=== PATIENT | male | born 1960 | race Two or more races ===

== ENCOUNTER 2025-02-20 10:17 | Emergency (ER) | payer MEDICAID, SELFPAY ==
[2025-02-20 10:57] VITALS: BP 125/82; PULSE 79; RESP 19; TEMP 36.6; O2SAT 98; BMI 33.1
--- NOTE | 2025-02-20 11:14 | EKG_ITS ---
[facility] Test Date: 2025-02-20 Pat Name: MICHAEL SALAMANCA Department: Room: - Gender: Male Product Development Specialist: : [id number] Requested By: Amy Lyles Order Number: [id number] Reading MD: Amy Lyles Measurements Intervals Heath Rate: 76 P: 57 [place]: 161 QRS: -25 QRSD: 92 T: 56 QT: 376 QTc: 424 Interpretive Statements SINUS RHYTHM BORDERLINE LEFT AXIS DEVIATION [QRS AXIS < -20] INCOMPLETE RIGHT BUNDLE BRANCH BLOCK [90+ ms QRS DURATION, TERMINAL R IN V1/V2, 40+ ms S IN I/aVL/V4/V5/V6] Compared to ECG 02/25/2018 12:07:49 Myocardial infarct finding no longer present /store/S0/[id number].pdf
--- NOTE | 2025-02-20 11:14 | EDRME_ITS ---
Rapid Medical Screening Exam RME Arrival date/time: 02/20/25 10:17 This is a 64-year-old male that comes in with complaints of dizziness feeling very lightheaded. Patient states he thought he was going to pass out. Patient also complains of shortness of breath. Patient is a smoker smokes approximately half a pack to 1 pack a day. Patient was seen today at the [facility]. Patient being currently worked up for possible pneumonia. Patient does have a history of high blood pressure. Today patient was given a shot of Rocephin in the office. Patient reports feels very dizzy at the time of assessment. I have greeted and performed a focused initial assessment of this patient. Initial appropriate labs ordered at this time. A comprehensive ED assessment and evaluation of the patient and analysis of all test and completion of medical decision making process will be conducted by additional ED provider. Chief Complaint: General Adult/Misc Complain Time Seen by Provider: 02/20/25 10:58 Vital signs: Vital Signs Temperature 97.9 F 02/20/25 10:57 Pulse Rate 79 02/20/25 10:57 Respiratory Rate 19 02/20/25 10:57 Blood Pressure 125/82 02/20/25 10:57 Pulse Oximetry (%) 98 02/20/25 10:57 Oxygen Delivery Method Room Air 02/20/25 10:57
--- NOTE | 2025-02-20 11:14 | XR_ITS ---
Exam: Chest PA, lateral 2 views Technique: Chest upright PA lateral 2 views Date and time of exam: 02/20/2025, 11:24 AM INDICATION: Shortness of breath COMPARISON: 02/25/2018 Findings: Normal heart size. No mediastinal adenopathy. No acute fracture Peribronchial thickening. No focal mass or consolidation Impression: Peribronchial inflammation. No focal mass or infiltrate
[2025-02-20 12:02] LABS: Basophils % (Auto) 0 % (0-2.5); Eosinophils # (Auto) 0.2 Thou/mm3 (0.0-0.5); Eosinophils % (Auto) 2 % (0-10); Hematocrit 47.5 % (41.0-53.0); Hemoglobin 16.1 g/dL (13.5-16.0); Immature Granulocytes % (Auto) 0 % (0-0); Immature Granulocytes Auto 0.03 Thou/mm3 (0.00-0.00); Lymphocytes # (Auto) 1.6 Thou/mm3 (1.0-4.8); Lymphocytes % (Auto) 21 % (10-50); Mean Corpuscular HGB Conc 33.9 g/dl (31.0-37.0); Mean Corpuscular Hemoglobin 31.1 pg (25.0-35.0); Mean Corpuscular Volume 92 fL (80-100); Monocytes # (Auto) 0.6 Thou/mm3 (0.0-0.8); Monocytes % (Auto) 7 % (0-12); Neutrophils # (Auto) 5.3 Thou/mm3 (1.8-7.7); Neutrophils % (Auto) 69 % (37-80); Nucleated Red Blood Cell % 0 /100 WBC (0); Platelet Count 247 Thou/mm3 (140-440); RDW Standard Deviation 47.7 fL (35.1-43.9); Red Blood Count 5.17 Miln/mm3 (4.50-5.90); White Blood Count 7.7 Thou/mm3 (3.8-10.6)
[2025-02-20 12:19] LABS: B-Type Natriuretic Peptide < 20 pg/mL (0-100)
[2025-02-20 12:20] LABS: Alanine Aminotransferase 46 U/L (10-49); Albumin, Serum 4.6 gm/dL (3.4-4.8); Albumin/Globulin Ratio 1.7 (1.2-2.2); Alkaline Phosphatase 68 U/L (46-116); Anion Gap 5 (7-16); Aspartate Amino Transferase 23 U/L (0-34); BUN/Creatinine Ratio 14 Ratio (12-20); Blood Urea Nitrogen 13 mg/dL (9-23); Calcium 9.4 mg/dL (8.3-10.6); Calcium (Corrected) 9.4 mg/dL (8.5-10.1); Carbon Dioxide 25.7 mMol/L (20.0-31.0); Chloride 105 mMol/L (98-107); Creatinine (Component) 0.9 mg/dL (0.6-1.3); Estimated Creatinine Clearance 84.9 mL/min (>60); Globulin 2.7 gm/dL (2.3-3.5); Glucose 112 mg/dL (74-106); Osmolality,Calculated 273 (275-295); Potassium 4.5 mMol/L (3.4-5.1); Sodium 136 mMol/L (136-145); Total Protein 7.3 gm/dL (5.7-8.2); Troponin I < 0.002 ng/mL (0.0-0.045); eGFR > 60 See Note
--- NOTE | 2025-02-20 15:10 | EDNOTE_ITS ---
<Statement entered by Lynda Phelan MD - 02/21/25 15:22> As co-signing physician, I was present and available for consult prn. I concur with the plan and care as documented by the midlevel provider. ED General RME/HPI General Chief complaint: General Adult/Misc Complain Stated complaint: CXR POSSIBLE PNA, LIGHT HEADED Time Seen by Provider: 02/20/25 10:58 Arrival date/time: 02/20/25 10:17 RME / HPI RME / HPI narrative: 65-year-old male patient with significant history of asthma, hypertension, came in for evaluation regarding sudden onset of dizziness. Onset of symptoms earlier this morning, patient woke up with sudden onset of dizziness, with lightheadedness, and feeling like passing out. Patient also complained of shortness of breath. Patient is a chronic smoker. Was seen in the clinic and was given ceftriaxone IM for possible pneumonia. Patient is ambulatory. Denies any head trauma or fall denies any fever denies any other complaints patient is denying any started with speech, or weakness to both upper or lower extremities. Related Data Home Medications ?Medication ?Instructions ?Recorded ?Confirmed lisinopril 20 mg tablet 20 mg PO QDAY 12/17/1704/13 albuterol sulfate 90 mcg/actuation 2 puff inhalation Q 4H PRN 04/13/21 04/13/21 aerosol inhaler (Ventolin HFA) budesonide-formoterol HFA 160 2 puff inhalation BID 04/13/21 mcg-4.5 mcg/actuation aerosol inhaler (Symbicort) Previous Rx's ?Medication ?Instructions ?Recorded meclizine 25 mg tablet 25 mg PO BID PRN dizziness # 20 tabs 02/20/25 Allergies Allergy/AdvReac Type Severity Reaction Status Date / Time No Known Allergies Allergy Verified 02/20/25 10:21 Review of Systems Review of Systems Narrative Review of Systems: Review of system reviewed and within normal limits except mentioned in HPI ED Exam Narrative Physical exam: VITAL SIGNS: Reviewed. GENERAL APPEARANCE: Alert and interactive, follows commands, no acute distress, HEAD AND FACE: Non-traumatic. ENT: PERRL, pink conjunctivitis, eyelid no trauma, Mucous membrane moist. NECK: Supple, nontender, no nuchal rigidity. CHEST: No tenderness, no crepitus, no paradoxical movement, no retractions. LUNGS: Clear, well ventilated, symmetric, no rales, no wheezing, no ronchi, no stridor, good breath sounds bilaterally. HEART: Regular rate, regular rhythm, no murmur, no gallops. ABDOMEN: Soft, positive bowel sounds, nondistended, no guarding, nontender, no rebound, no masses, RECTAL: Deferred. GENITAL: Deferred. NEUROLOGICAL: Gross motor function intact sensory function intact, Appropriate for age. MUSCULOSKELETAL: low back nontender, full range of motion. EXTREMITIES: Nontender, full range of motion. SKIN: Color pink, dry, no rash, no lacerations, no abrasions, no contusions. LYMPHATICS: Deferred. Course Quality Measures none Orders Category Date Time Status EKG (ED ONLY) *Do not use* NOW Care 02/20/25 11:14 Completed EKG (ED Only) Stat Exams 02/20/25 11:14 Draft XR chest 2V Stat Exams 02/20/25 11:14 Completed BNP [B-Type Natriuretic Peptide] Stat Lab 02/20/25 11:55 Completed CBC Stat Lab 02/20/25 11:55 Completed Comprehensive Metabolic Panel Stat Lab 02/20/25 11:55 Completed Troponin I Stat Lab 02/20/25 11:55 Completed Meclizine HCl [Antivert] Med 02/20/25 15:09 Discontinued 50 mg PO X1 ONE Vital Signs Vital signs: Vital Signs Temperature 97.9 F 02/20/25 10:57 Pulse Rate 79 02/20/25 10:57 Respiratory Rate 19 02/20/25 10:57 Blood Pressure 125/82 02/20/25 10:57 Pulse Oximetry (%) 98 02/20/25 10:57 Oxygen Delivery Method Room Air 02/20/25 10:57 [facility] Patient data External records reviewed:: [facility] previous records Clinical information provided by:: patient Social determinants that could affect healthcare access:: none Patient has the following chronic illnesses:: Hypertension asthma How is presenting disease/condition affected by chronic disease/condition?: e xacerbated by Evaluation data The following diagnostics were reviewed and interpreted by me:: lab results, radiology exam(s) and EKG tracing(s) Lab and/or radiology exams considered but not ordered:: None Interpretation Summary: See results [facility] Medications Medications considered but not ordered:: None Medication administrations:: Medication Administration History Discontinued Medications Meclizine HCl (Meclizine Hcl 25 Mg Tablet) 50 mg PO X1 ONE Stop: 02/20/25 15:10 Meclizine Consultations Consultation(s) initiated? (list below): No Diagnosis Differential Diagnosis ED Complaint MDM: Dizziness, vertigo, cough Most likely diagnosis given after review of the tests above:: Dizziness Admission Indicated Admission indicated?: not indicated Explain why admission is indicated or not indicated:: Stable Admission Request Was there a request for admission?: No Disposition Plan Disposition Plan: Discharge Discharge Attestation Discharge Attestation: The patient and all family members were given an opportunity to ask questions and understood the discharge instructions. Discharge instructions specifically effects, indications for sooner follow up or return to the emergency department, and the expected course of current diagnosis. Patient condition: Stable Medical Decision Making MDM Narrative MDM Narrative: 65-year-old male patient with significant history of asthma, hypertension, came in for evaluation regarding sudden onset of dizziness. Onset of symptoms earlier this morning, patient woke up with sudden onset of dizziness, with lightheadedness, and feeling like passing out. Patient also complained of shortness of breath. Patient is a chronic smoker. Was seen in the clinic and was given ceftriaxone IM for possible pneumonia. Patient is ambulatory. Denies any head trauma or fall denies any fever denies any other complaints patient is denying any started with speech, or weakness to both upper or lower extremities. Patient's workup today all came back unremarkable including troponin that is normal also. EKG showed sinus rhythm, ventricular rate of 76 bpm, no ST segment elevation or depression noted. Chest x-ray showed no infiltrates no pneumothorax no pneumothorax except for possible [place] bronchial inflammation. Patient was given meclizine with significant improvement of symptoms. Patient was noted to be ambulatory with no assist. Patient appears nontoxic and hemodynamically stable. Patient discharged home and instructed to follow-up with primary care provider in 24 to 48 hours. Instructed to return to the emergency department immediately if worsening of symptoms Differential Diagnosis Differential Diagnosis: Dizziness, vertigo, cough Lab Data 02/20/25 11:55 02/20/25 11:55 Labs: Lab Results 02/20/25 Range/Units 11:55 WBC 7.7 (3.8-10.6) Thou/mm3 RBC 5.17 (4.50-5.90) Miln/mm3 Hgb 16.1 H (13.5-16.0) g/dL Hct 47.5 (41.0-53.0) % MCV 92 (80-100) fL MCH 31.1 (25.0-35.0) pg MCHC 33.9 (31.0-37.0) g/dl RDW Std Deviation 47.7 H (35.1-43.9) fL Plt Count 247 (140-440) Thou/mm3 Neut % (Auto) 69 (37-80) % Lymph % (Auto) 21 (10-50) % [place] % (Auto) 7 (0-12) % Eos % (Auto) 2 (0-10) % Baso % (Auto) 0 (0-2.5) % Neut # (Auto) 5.3 (1.8-7.7) Thou/mm3 Lymph # (Auto) 1.6 (1.0-4.8) Thou/mm3 [place] # (Auto) 0.6 (0.0-0.8) Thou/mm3 Eos # (Auto) 0.2 (0.0-0.5) Thou/mm3 Baso # (Auto) 0.0 (0.0-0.2) Thou/mm3 Immature Gran # (Auto) 0.03 H (0.00-0.00) Thou/mm3 Absolute Nucleated RBC 0.00 (0.00-0.00) Thou/mm3 Immature Gran % 0 (0-0) % Nucleated RBC % 0 (0) /100 WBC Sodium 136 (136-145) mMol/L Potassium 4.5 (3.4-5.1) mMol/L Chloride 105 (98-107) mMol/L Carbon Dioxide 25.7 (20.0-31.0) mMol/L Anion Gap 5 L (7-16) BUN 13 (9-23) mg/dL Creatinine 0.9 (0.6-1.3) mg/dL Estim Creat Clear Calc 84.9 (>60) mL/min eGFR > 60 (60 - ) See Note BUN/Creatinine Ratio 14 (12-20) Ratio Glucose 112 H (74-106) mg/dL Calculated Osmolality 273 L (275-295) Calcium 9.4 (8.3-10.6) mg/dL Corrected Calcium 9.4 (8.5-10.1) mg/dL Total Bilirubin 1.0 (0.3-1.2) mg/dL AST 23 (0-34) U/L ALT 46 (10-49) U/L Alkaline Phosphatase 68 (46-116) U/L Troponin I < 0.002 (0.0-0.045) ng/mL B-Natriuretic Peptide < 20 (0-100) pg/mL Total Protein 7.3 (5.7-8.2) gm/dL Albumin 4.6 (3.4-4.8) gm/dL Globulin 2.7 (2.3-3.5) gm/dL Albumin/Globulin Ratio 1.7 (1.2-2.2) Discharge Plan Plan Patient Disposition: HOME (Self Care) Disposition Comment: Stable Prescriptions/Referrals Prescriptions/Med Rec: New meclizine 25 mg tablet 25 mg PO BID PRN (Reason: dizziness) Qty: 20 0RF No Action budesonide-formoterol [Symbicort] 160-4.5 mcg/actuation HFA aerosol inhaler 2 puff inhalation BID albuterol sulfate [Ventolin HFA] 90 mcg/actuation HFA aerosol inhaler 2 puff inhalation Q4H PRN lisinopril 20 mg Tablet 20 mg PO QDAY Referrals: Lisbeth Sandoval DENTIST ATTENDANT [Primary Care Provider] - In 1 week Problem List Clinical Impression: Dizziness Patient/Caregiver Discharge Instructions Discharge Activity: activity as tolerated Education Materials: Dizziness Fainting Poss Causes Additional Instructions: Thank you for the opportunity for serving you today. You are stable for discharged . You are advised to: Follow-up with your PCP in 1 to 2 days Return to ED for worsening of symptoms Increase oral fluids Take medication as prescribed Print Language: Khmer Stand Alone Forms: Bailee Award Info., Patient Portal Info Letter PA/RCIHI Supervising Physician TRAVIS/RICHI Supervising Physician: MD Zhane
[2025-02-20] MEDS: MECLIZINE HCL 25 MG TABLET 50 MG PO (16:04)
== END 2025-02-20 16:20 | disposition home or self-care (01) ==
PROVIDERS: Nurse Practitioner Family; Emergency Provider Emergency Medicine; PCP Nurse Practitioner Family
DX: R42 Dizziness and giddiness (principal); I10 Essential (primary) hypertension; J45.909 Unspecified asthma, uncomplicated; F17.200 Nicotine dependence, unspecified, uncomplicated
CPT/HCPCS: 36415; 71046; 80053; 83880; 84484; 85025; 93005; 99283; A9270

== ENCOUNTER → 2025-07-22 | Outpatient (CLI) | payer MEDICAID, SELFPAY ==
--- NOTE | 2025-07-22 | XR_ITS ---
Examination: PA lateral chest 2 views TECHNIQUE: Upright PA lateral chest 2 views Date and time: July 22, 2025 1119 hours, comparison February 20, 2025 INDICATIONS: Coughing shortness of breath beginning one week ago. FINDINGS: Normal heart size. Moderate hyperexpansion. No pneumonia or pulmonary edema Mild to moderate diffuse thoracic degenerative disc disease IMPRESSION: COPD Moderate hyperexpansion No pneumonia or pulmonary edema
== END | disposition home or self-care (01) ==
LOC: CDIM 10:39
PROVIDERS: PCP Nurse Practitioner Family; Referring Provider Nurse Practitioner Family; Visit Provider Nurse Practitioner Family
DX: J44.1 Chronic obstructive pulmonary disease with (acute) exacerbation (principal); R91.8 Other nonspecific abnormal finding of lung field
CPT/HCPCS: 71046

== ENCOUNTER 2025-07-27 06:27 | Emergency (ER) | payer MEDICAID, SELFPAY ==
[2025-07-27 06:28] VITALS: BMI 31.7
[2025-07-27 06:49] VITALS: BP 153/94; PULSE 84; RESP 22; TEMP 36.6; O2SAT 93
--- NOTE | 2025-07-27 06:54 | XR_ITS ---
Examination: PA lateral chest 2 views Technique: Upright PA lateral chest 2 views Date and time: July 27, 2025 0726 hrs. Indications: Coughing fever beginning 3 days ago. Findings: Normal heart size. Lungs are clear. The osseous structures are intact Impression: No active disease
[2025-07-27] MEDS: DEXAMETHASONE SOD PHOS INJ 10 MG/ML VIAL PO (07:35)
--- NOTE | 2025-07-27 07:38 | EDNOTE_ITS ---
<Statement entered by Lynda Phelan MD - 07/27/25 11:56> As co-signing physician, I was present and available for consult prn. I concur with the plan and care as documented by the midlevel provider. ED SOB =RME/HPI General Chief Complaint: Flu Like Symptoms Stated Complaint: SOB Time Seen by Provider: 07/27/25 07:06 Source: patient Arrival date/time: 07/27/25 06:27 64-year-old male with a history of asthma, hypertension presents to the emergency room with a chief complaint of difficulty breathing x 1 day Mode of arrival: ambulatory Limitations: no limitations Related Data Home Medications ?Medication ?Instructions ?Recorded ?Confirmed lisinopril 20 mg tablet 20 mg PO QDAY 12/17/1704/13 albuterol sulfate 90 mcg/actuation 2 puff inhalation Q 4H PRN 04/13/21 04/13/21 aerosol inhaler (Ventolin HFA) budesonide-formoterol HFA 160 2 puff inhalation BID 04/13/21 mcg-4.5 mcg/actuation aerosol inhaler (Symbicort) Previous Rx's ?Medication ?Instructions ?Recorded meclizine 25 mg tablet 25 mg PO BID PRN dizziness # 20 tabs 02/20/25 Allergies Allergy/AdvReac Type Severity Reaction Status Date / Time No Known Allergies Allergy Verified 07/27/25 06:31 Review of Systems Review of Systems Systems Reviewed: All systems reviewed, normal except as documented Constitutional Constitutional: Reports system reviewed and no additional complaints, except as documented, Denies fatigue, Denies fever(s), Denies headache(s) and Denies weakness Eyes Eyes: Reports system reviewed and no additional complaints, except as documented, Denies blurry vision and Denies change in vision ENT Ears, Nose, Mouth, and Throat: Reports system reviewed and no additional complaints, except as documented, Denies otalgia, Denies headache(s), Denies nasal congestion, Denies throat swelling and Denies vertigo Cardiovascular Cardiovascular: Reports system reviewed and no additional complaints, except as documented, Denies chest pain, Denies dyspnea and Denies dyspnea on exertion Respiratory Respiratory: Reports system reviewed and no additional complaints, except as documented, Denies chest congestion, Denies cough, Denies dyspnea, Denies dyspnea on exertion and Denies wheezing Gastrointestinal Gastrointestinal: Reports system reviewed and no additional complaints, except as documented, Denies abdominal pain, Denies cramping, Denies nausea and Denies vomiting Genitourinary Genitourinary: Reports system reviewed and no additional complaints, except as documented, Denies dysuria and Denies hematuria Musculoskeletal Musculoskeletal: Reports system reviewed and no additional complaints, except as documented and Denies back pain Integumentary/Breasts Skin/Breast: Reports system reviewed and no additional complaints, except as documented and Denies wounds Neurologic Neurologic: Reports system reviewed and no additional complaints, except as documented, Denies confusion, Denies headache(s), Denies lack of coordination, Denies vertigo and Denies weakness Psychiatric Psychiatric: Reports system reviewed and no additional complaints, except as documented, Denies anxiety, Denies confusion, Denies depression, Denies paranoia, Denies suicidal ideation and Denies tactile hallucinations Endocrine Endocrine: Reports system reviewed and no additional complaints, except as documented and Denies fatigue Hematologic/Lymphatic Hematologic/Lymphatic: Reports system reviewed and no additional complaints, except as documented and Denies lymphadenopathy Allergic/Immunologic Allergic/Immunologic: Reports system reviewed and no additional complaints, except as documented, Denies throat swelling, Denies urticaria and Denies wheezing ED Exam General Limitations: Present no limitations Course Quality Measures none Orders Category Date Time Status Bedside COVID-19 Antigen Test NOW Care 07/27/25 06:54 Active Bedside Influenza A&B Antigen Test NOW Care 07/27/25 06:54 Active XR chest 2V Stat Exams 07/27/25 06:54 Completed Albuterol/Ipratr Rt Rochelle [Duoneb Rt Rochelle] Med 07/27/25 06:54 Discontinued 6 ml INH X1 ONE Dexamethasone Inj [Decadron Inj] Med 07/27/25 06:54 Discontinued 10 mg PO X1 ONE Vital Signs Vital signs: Vital Signs Temperature 98 F 07/27/25 06:49 Pulse Rate 84 07/27/25 06:49 Respiratory Rate 22 H 07/27/25 06:49 Blood Pressure 153/94 H 07/27/25 06:49 Pulse Oximetry (%) 93 L 07/27/25 06:49 Oxygen Delivery Method Room Air 07/27/25 06:49 Shortness of Breath / Dyspnea MDM Narrative MDM Narrative:: 64-year-old male with a history of asthma, hypertension presents to the emergency room with a chief complaint of difficulty breathing x 1 day Patient is hemodynamically stable and in no apparent distress Physical examination shows bilateral upper and lower lobe wheezing. Patient's O2 saturation is 93%. Patient has a history of asthma. A breathing treatment and steroids were given to the patient and the patient was reevaluated in 1 hour with significant improvement to his symptoms. Patient's O2 saturation is 100% on room air. Patient was able to walk to the restroom and return with no hypoxia and O2 saturation stayed at 97%. Patient's lungs are reevaluated and the wheezing significantly decreased. Patient states he feels a lot better. Chest x-ray was negative for any pneumonia Patient was discharged and educated to follow-up with primary care provider in the next 24 to 48 hours and return to the emergency room for any evidence of worsening signs or symptoms Patient data External records reviewed:: [facility] previous records Clinical information provided by:: patient Social determinants that could affect healthcare access:: none Patient has the following chronic illnesses:: Asthma How is presenting disease/condition affected by chronic disease/condition?: exacerbated by Evaluation data The following diagnostics were reviewed and interpreted by me:: lab results and radiology exam(s) Lab and/or radiology exams considered but not ordered:: Labs and radiology exams considered and ordered Interpretation Summary: Chest [id number]: Normal heart size. Lungs are clear. The osseous structures are intact Impression: No active disease Medications / Prescriptions Medications or Prescriptions considered but not ordered:: Medication given Medication administrations:: Medication Administration History Discontinued Medications Albuterol/Ipratropium (Albuterol/Ipratropium (Duoneb) Rt Rochelle 3 Ml Nebu) 6 ml INH X1 ONE Stop: 07/27/25 06:55 Last Admin: 07/27/25 07:44 Dose: 6 ml Documented By: EV Dexamethasone Sodium Phosphate (Dexamethasone Sod Phos Inj 10 Mg/Ml Vial) 10 mg PO X1 ONE Stop: 07/27/25 06:55 Last Admin: 07/27/25 07:35 Dose: 10 mg Documented By: ED Medication given Consultations Consultation(s) initiated? (list below): No Diagnosis Shortness of Breath Differential Diagnosis: acute exacerbation of chronic obstructive airways disease, community acquired pneumonia and asthma with exacerbation Most likely diagnosis given after review of the tests above:: Asthma with exacerbation Admission Indicated Admission indicated?: not indicated Admission Request Was there a request for admission?: No Disposition Plan Disposition Plan: Discharge Discharge Attestation Discharge Attestation: The patient and all family members were given an opportunity to ask questions and understood the discharge instructions. Discharge instructions specifically effects, indications for sooner follow up or return to the emergency department, and the expected course of current diagnosis. Patient condition: Stable Discharge Plan Plan Patient Disposition: HOME (Self Care) Discharge Disposition comment: Stable Prescriptions/Referrals Prescriptions/Med Rec: No Action budesonide-formoterol [Symbicort] 160-4.5 mcg/actuation HFA aerosol inhaler 2 puff inhalation BID albuterol sulfate [Ventolin HFA] 90 mcg/actuation HFA aerosol inhaler 2 puff inhalation Q4H PRN lisinopril 20 mg Tablet 20 mg PO QDAY meclizine 25 mg tablet 25 mg PO BID PRN (Reason: dizziness) Qty: 20 0RF Referrals: No Primary/Family,Physician [Primary Care Provider] - In 1 week Problem List Clinical Impression: Asthma with exacerbation Patient/Caregiver Discharge Instructions Education Materials: Asthma Additional Instructions: Please follow-up with your primary care provider in the next 24 to 48 hours Your x-ray was negative for any pneumonia. Please stop smoking as this is worsening your difficulty breathing For any evidence of worsening signs or symptoms return to the emergency room immediately Print Language: Nepali Stand Alone Forms: Bailee Award Info., Patient Portal Info Letter PA/RICHI Supervising Physician PA/RICHI Supervising Physician: Dr. Cunningham
[2025-07-27] MEDS: ALBUTEROL/IPRATROPIUM (Duoneb) RT SOL 3 ML NEBU 6 ML INH (07:44)
[2025-07-27 07:48] VITALS: PULSE 81; RESP 20; O2SAT 100
== END 2025-07-27 09:14 | disposition home or self-care (01) ==
PROVIDERS: Emergency Provider Nurse Practitioner Family
DX: J45.901 Unspecified asthma with (acute) exacerbation (principal); R50.9 Fever, unspecified; Z79.51 Long term (current) use of inhaled steroids
CPT/HCPCS: 71046; 94640; 99283; A9270; J1100

== ENCOUNTER 2025-08-07 04:09 | Inpatient (IN) | payer MEDICAID, SELFPAY ==
[2025-08-07] VITALS (16 sets, daily range): BP systolic 106–157; BP diastolic 65–91; PULSE 75–104; RESP 18–24; TEMP 36–37; O2SAT 92–99; BMI 30.9; BMI 31.6
--- NOTE | 2025-08-07 04:29 | PD.EDSOB ---
ED SOB =RME/HPI General Chief Complaint: Shortness of Breath/Dyspnea Stated Complaint: ASTHMA Time Seen by Provider: 08/07/25 05:04 Arrival date/time: 08/07/25 04:09 RME / HPI RME / HPI Narrative: Dr. Lamar?s Main ED Evaluation: 64yo male with known asthma, smoking presenting with dyspnea for the last several days. no fever, but does report scant productive cough. Notes progressive dyspnea despite use of dual inhalers. No vomiting, diarrhea, fever, or chills. Related Data Home Medications ?Medication ?Instructions ?Recorded ?Confirmed lisinopril 20 mg tablet 20 mg PO QDAY 12/17/17 04/13/21 albuterol sulfate 90 mcg/actuation 2 puff inhalation Q4H PRN 04/13/21 04/13/21 aerosol inhaler (Ventolin HFA) budesonide-formoterol HFA 160 2 puff inhalation BID 04/13/21 04/13/21 mcg-4.5 mcg/actuation aerosol inhaler (Symbicort) Previous Rx's ?Medication ?Instructions ?Recorded meclizine 25 mg tablet 25 mg PO BID PRN dizziness #20 tabs 02/20/25 Allergies Allergy/AdvReac Type Severity Reaction Status Date / Time No Known Allergies Allergy Verified 08/07/25 04:12 Review of Systems Review of Systems Systems Reviewed: All systems reviewed, normal except as documented Past Medical History Past Medical History CARDIAC: Positive Hypercholesterolemia and Hypertension; Negative Congestive Heart Failure RESPIRATORY: Negative Chronic Obstructive Pulmonary Disease (COPD) GENITOURINARY: Negative Renal Disease ENDOCRINE: Negative Diabetes Mellitus Type 1 or Diabetes Mellitus Type 2 PSYCHO/SOCIAL: Positive Anxiety Social History SMOKING STATUS: Current every day smoker ED Exam Narrative Physical exam: GENERAL APPEARANCE: alert and oriented x 4, tripodding, slight use of accessory muscles, in moderate distress HEENT: Normocephalic, atraumatic; pupils equal, round, reactive to light; EOMI; mucous membranes pink, moist; oropharynx clear NECK: Supple. no stridor CHEST: slight retractions LUNGS: slight accessory muscle use, diminished breath sounds, scattered faint wheezes bilaterally HEART: Tachycardic, regular rhythm; normal S1, S2; no murmurs ABDOMEN: non distended; normal BS; soft, no tenderness, no guarding, no rebound; no masses, no organomegaly, no hernia BACK: no CVA tenderness EXTREMITIES: atraumatic; no edema NEUROLOGIC: awake; alert and oriented x4; cranial nerves II-XII grossly intact; no focal sensory or motor deficits PSYCHIATRIC: appropriate mood and affect SKIN: warm, dry, normal color; no rashes Course Course Course Narrative: CXR is ordered for determining the etiology of shortness of breath. Quality Measures none Orders Category Date Time Status XR chest 1V portable Stat Exams 08/07/25 04:30 Completed CBC [CBC] Stat Lab 08/07/25 04:55 Completed CMP [Comprehensive Metabolic Panel] Stat Lab 08/07/25 04:55 Completed Urinalysis, C/S if Indicated Stat Lab 08/07/25 05:43 Completed ALBUTEROL RT 0.5ml [Proventil Rt 0.5ml] Med 08/07/25 04:49 Discontinued 10 mg .ROUTE .STK-MED ONE ALBUTEROL RT 0.5ml [Proventil Rt 0.5ml] Med 08/07/25 04:30 Discontinued 10 mg INH X1 ONE Dexamethasone Inj [Decadron Inj] 10 mg Med 08/07/25 04:30 Discontinued Sodium Chloride 0.9% [Ns] 50 ml IV X1 Magnesium Sulfate 2 GM Ivpb [Magnesium Sulfate Ivpb] Med 08/07/25 04:35 Active 2 gm in 50 ml IV X1 Sodium Chloride 0.9% 500 ml [Ns] 500 ml Med 08/07/25 04:35 Discontinued IV 500 mls/hr Sodium Chloride Rt Rochelle 0.9% [NS Rt Rochelle 0.9%] Med 08/07/25 04:30 Active 3 ml INH PRN PRN Vital Signs Vital signs: Vital Signs Temperature 97.7 F 08/07/25 04:09 Pulse Rate 103 H 08/07/25 04:09 Respiratory Rate 24 H 08/07/25 04:09 Blood Pressure 157/91 H 08/07/25 04:09 Pulse Oximetry (%) 93 L 08/07/25 04:09 Oxygen Delivery Method Nasal Cannula 08/07/25 04:09 Oxygen Flow Rate 3 08/07/25 04:09 Shortness of Breath / Dyspnea MDM Narrative MDM Narrative:: Scribe Attestation: 08/07/25 - Karlene Pack am scribing for and in the presence of Dr. Lamar. 64yo male with known asthma, smoking presenting with dyspnea for the last several days. no fever, but does report scant productive cough. Notes progressive dyspnea despite use of dual inhalers. Please see PE findings. Lab markers demonstrated hemoconcentration with Hgb 17, no left shift or bandemia. CXR without infiltrate. Patient immediately triaged to monitor bed and was aggressively treated with nebulizer therapy, IV steroids, and Magnesium. Please see AM physician's note for final disposition. Patient data External records reviewed:: [facility] previous records (Per chart review, patient was seen here on 07/27/25 for asthma exacerbation.) Clinical information provided by:: patient Social determinants that could affect healthcare access:: none Patient has the following chronic illnesses:: asthma, HTN How is presenting disease/condition affected by chronic disease/condition?: exacerbated by Evaluation data The following diagnostics were reviewed and interpreted by me:: lab results, radiology exam(s) and EKG tracing(s) Lab and/or radiology exams considered but not ordered:: none Interpretation Summary: CXR demonstrated hyperexpanded lung champagne, no infiltrates, no effusions, according to my interpretation. Medications / Prescriptions Medications or Prescriptions considered but not ordered:: none Medication administrations:: Medication Administration History Magnesium Sulfate (Magnesium Sulfate Ivpb) 2 gm in 50 mls @ 25 mls/hr IV X1 ONE Stop: 08/07/25 06:34 Last Admin: 08/07/25 05:40 Dose: 25 mls/hr Documented By: DT Sodium Chloride (Sodium Chloride Rt Rochelle 0.9% 3 Ml Nebu) 3 ml INH PRN PRN PRN Reason: SOLN Stop: 09/06/25 04:29 Discontinued Medications Albuterol (Albuterol Rt 2.5 Mg/0.5 Ml Nebu) 10 mg INH X1 ONE Stop: 08/07/25 04:31 Last Admin: 08/07/25 04:56 Dose: Not Given Documented By: EMR Non-Admin Reason: Override Medication Albuterol (Albuterol Rt 2.5 Mg/0.5 Ml Nebu) Confirm Administered Dose 10 mg .ROUTE .STK-MED ONE Stop: 08/07/25 04:50 Last Admin: 08/07/25 04:53 Dose: 10 mg Documented By: EMR Dexamethasone Sodium Phosphate (10 mg/ Sodium Chloride) 51 mls @ 102 mls/hr IV X1 ONE Stop: 08/07/25 04:31 Sodium Chloride (Ns) 500 mls @ 500 mls/hr IV .Q1H ONE Stop: 08/07/25 05:34 Last Admin: 08/07/25 05:41 Dose: 500 mls/hr Documented By: DT see above Consultations Consultation(s) initiated? (list below): No Diagnosis Shortness of Breath Differential Diagnosis: acute exacerbation of chronic obstructive airways disease, congestive heart failure, community acquired pneumonia and asthma with exacerbation Most likely diagnosis given after review of the tests above:: acute asthma exacerbation Admission Indicated Admission indicated?: not indicated Admission Request Was there a request for admission?: No Disposition Plan Disposition Plan: other (specify) (Signed out to Dr. Augustin at 6 AM.) Discharge Plan Prescriptions/Referrals Prescriptions/Med Rec: No Action budesonide-formoterol [Symbicort] 160-4.5 mcg/actuation HFA aerosol inhaler 2 puff inhalation BID albuterol sulfate [Ventolin HFA] 90 mcg/actuation HFA aerosol inhaler 2 puff inhalation Q4H PRN lisinopril 20 mg Tablet 20 mg PO QDAY meclizine 25 mg tablet 25 mg PO BID PRN (Reason: dizziness) Qty: 20 0RF Referrals: No Primary/Family,Physician [Primary Care Provider] - In 1 week Problem List Clinical Impression: Asthma with exacerbation Patient/Caregiver Discharge Instructions Print Language: Pashto
--- NOTE | 2025-08-07 04:30 | XR_ITS ---
Examination: AP chest single view Technique: AP portable upright chest single view Date and time: August 07, 2025, 0500 hrs. Indications: Shortness of breath today Findings: Normal heart size. Lungs are clear. The osseous structures are intact Impression: No active disease
[2025-08-07] MEDS: ALBUTEROL RT 2.5 MG/0.5 ML NEBU 10 MG (04:53)
[2025-08-07 05:11] LABS: Basophils # (Auto) 0.1 Thou/mm3 (0.0-0.2); Basophils % (Auto) 1 % (0-2.5); Eosinophils # (Auto) 0.4 Thou/mm3 (0.0-0.5); Eosinophils % (Auto) 5 % (0-10); Hematocrit 50.4 % (41.0-53.0); Hemoglobin 17.1 g/dL (13.5-16.0); Immature Granulocytes Auto 0.02 Thou/mm3 (0.00-0.00); Lymphocytes # (Auto) 3.1 Thou/mm3 (1.0-4.8); Lymphocytes % (Auto) 37 % (10-50); Mean Corpuscular HGB Conc 33.9 g/dl (31.0-37.0); Mean Corpuscular Hemoglobin 30.9 pg (25.0-35.0); Mean Corpuscular Volume 91 fL (80-100); Monocytes # (Auto) 0.6 Thou/mm3 (0.0-0.8); Monocytes % (Auto) 7 % (0-12); Neutrophils # (Auto) 4.2 Thou/mm3 (1.8-7.7); Neutrophils % (Auto) 51 % (37-80); Nucleated Red Blood Cell # 0.00 Thou/mm3 (0.00-0.00); Nucleated Red Blood Cell % 0 /100 WBC (0); Platelet Count 217 Thou/mm3 (140-440); RDW Standard Deviation 46.4 fL (35.1-43.9); Red Blood Count 5.53 Miln/mm3 (4.50-5.90); White Blood Count 8.4 Thou/mm3 (3.8-10.6)
[2025-08-07 05:28] LABS: Alanine Aminotransferase 52 U/L (10-49); Albumin, Serum 4.9 gm/dL (3.4-4.8); Albumin/Globulin Ratio 1.8 (1.2-2.2); Alkaline Phosphatase 69 U/L (46-116); Anion Gap 9 (7-16); Aspartate Amino Transferase 29 U/L (0-34); BUN/Creatinine Ratio 11 Ratio (12-20); Bilirubin,Total 0.6 mg/dL (0.3-1.2); Blood Urea Nitrogen 10 mg/dL (9-23); Calcium 9.9 mg/dL (8.3-10.6); Calcium (Corrected) 9.9 mg/dL (8.5-10.1); Carbon Dioxide 23.5 mMol/L (20.0-31.0); Chloride 105 mMol/L (98-107); Creatinine (Component) 0.9 mg/dL (0.6-1.3); Estimated Creatinine Clearance 82.1 mL/min (>60); Globulin 2.7 gm/dL (2.3-3.5); Glucose 109 mg/dL (74-106); Osmolality,Calculated 273 (275-295); Potassium 4.2 mMol/L (3.4-5.1); Sodium 137 mMol/L (136-145); Total Protein 7.6 gm/dL (5.7-8.2); eGFR > 60 See Note
[2025-08-07] MEDS: Magnesium Sulfate 2 GM Ivpb 2 GM/50 ML BAG IV (05:40)
[2025-08-07] MEDS: SODIUM CHLORIDE 0.9% 500 ML 500 ML IV (05:41)
[2025-08-07 05:54] LABS: Collection Type, Urine Clean Catch; Squamous Epithelial Cell,Urine 0 /hpf (0-5)
[2025-08-07 05:56] LABS: Bilirubin,Urine Negative (Negative); Blood,Urine Negative (Negative); Clarity,Urine Clear (Clear/Hazy); Color,Urine Lt-Yellow (Lt Yel-Yel); Culture Indicated,Urine Not Indicated; Glucose, Urine Negative (Negative); Hyaline Casts,Urine < 1 /hpf (0-1); Ketones,Urine Negative (Negative); Leukocyte Esterase,Urine Negative (Negative); Nitrite,Urine Negative (Negative); PH,Urine 5.5 (5.0-7.0); Protein,Urine Negative (Neg - Trace); RBC,Urine 2 /hpf (0-3); Specific Gravity,Urine 1.020 (1.001-1.035); Urobilinogen,Urine Negative mg/dL (0.0-1.0); WBC,Urine 1 /hpf (0-5)
--- NOTE | 2025-08-07 06:37 | PD.EDADDENDU ---
Emergency Room Addendum Addendum Narrative: Patient is a 64-year-old male with medical history notable for smoking, lung nodules, COPD does not Emergency Department presents for shortness of breath. Prior provider evaluated patient. Ordered labs, x-ray provided patient with medication for symptom relief. Chest x-ray unremarkable. Patient without any significant hematologic or metabolic abnormalities. Urinalysis without evidence of infection. On my evaluation patient resting comfortably in bed.
--- NOTE | 2025-08-07 06:42 | PD.EDADDENDU ---
Emergency Room Addendum <Dahlia Feliciano - Last Filed: 08/07/25 11:12> Addendum Narrative: 0600: Care assumed from Dr. Martin, the previous shift emergency physician. Past medical, surgical, social and family history reviewed. Vitals and home medications reviewed. I will assume the care of the patient at this time, pending reevaluation and final disposition. Please refer to the emergency department record for history and examination from initial visit.? Physical exam by me shows patient continues to be wheezy worse on the left than the right. Ordered additional breathing treatment. 10:22a. Reevaluated patient continues to be hypoxic requiring 4 L nasal cannula, patient is not hypoxic at home. Continues to have some wheezing, ordered additional breathing treatment. Consult to the hospitalist team for admission CRITICAL CARE TIME: I spent 35 minutes of critical care time with this patient not including reportable procedures. There was an acute impairment of an organ system with a high probability of imminent or life threatening deterioration in the patient's condition. Interventions and changes required in the course of therapy are located in the chart. Time involved was spent in direct patient care, reviewing ancillary data, old records, consulting with decision makers, EMS, other doctors, giving orders and documenting. 1040: Discussed test HPI, PMHx, lab, radiology results and/or management with the hospitalist. Will admit for further evaluation and management. Accepts patient for admission. <Gayla Augustin MD - Last Filed: 08/07/25 10:23> Addendum Narrative: 0600: Care assumed from Dr. Martin, the previous shift emergency physician. Past medical, surgical, social and family history reviewed. Vitals and home medications reviewed. I will assume the care of the patient at this time, pending reevaluation and final disposition. Please refer to the emergency department record for history and examination from initial visit.? Physical exam by me shows patient continues to be wheezy worse on the left than the right. Ordered additional breathing treatment. 10:22a. Reevaluated patient continues to be hypoxic requiring 4 L nasal cannula, patient is not hypoxic at home. Continues to have some wheezing, ordered additional breathing treatment. Consult to the hospitalist team for admission ?I spent 35 minutes of critical care time with this patient not including reportable procedures. There was an acute impairment of an organ system with a high probability of imminent or life threatening deterioration in the patient's condition. Interventions and changes required in the course of therapy are located in the chart. Time involved was spent in direct patient care, reviewing ancillary data, old records, consulting with decision makers, EMS, other doctors, giving orders and documenting.
[2025-08-07] MEDS: DEXAMETHASONE SOD PHOS INJ 10 MG/ML VIAL IVP (08:22)
[2025-08-07] MEDS: ALBUTEROL RT 2.5 MG/0.5 ML NEBU 10 MG INH ×2 (08:49→11:17)
--- NOTE | 2025-08-07 12:56 | ESHP_ITS ---
<Statement entered by Thu Stark MD - 08/07/25 17:25> Mr. Soto is a 64-year-old male with past medical history significant for asthma, smoking history, hypertension, hyperlipidemia who presented to the ED with acute shortness of breath started this morning and admitted for further management of asthma/COPD acid patient. Patient be admitted to med/tele, started on breathing treatments, steroids, and will continue his home medications. Anticipate discharge within 48 to 72 hours. I discussed with and supervised the learning and development intern physician who took care of this patient. I personally saw and examined the patient and discussed the assessment and plan with the entire medicine team, including my attending Dr. Dunn, I agree with most of the assessment and plan as documented below Thu Stark M.D. PGY-3 Disclaimer: Despite multiple revisions, due to the dictation software being used, the document bellow may not be free of grammatical errors including phonetic/typographic errors. However, this does not deter from our commitment to providing health care in the patient's best interest in mind. Documentation for date of: 08/07/25 HPI History of Present Illness Chief complaint: shortness of breath History of present illness: This is a 64 yom with a h/o asthma, presumptive COPD, HTN, HLD, and current tobacco use who presents with acute shortness of breath that started this morning. He was seen in the ED on 07/27 for a similar complaint, was treated and stabilized, and subsequently discharged in stable condition. He had been doing well up until this morning. Started wheezing, tried using a rescue albuterol inhalor, did not get relief. He endorses a productive cough with whitish sputum, but denies fever, headache, chills, sick contacts, nausea/vomiting, chest pain, palpetations, plueritic pain, or abdominal pain. He continues to use cigarettes, 10 to a pack per day due to stressors at home. He also does a lot of yard work around the house which he thinks may be contributory. At his last ED visit, budesonide-formoterol inhalor was prescribed, but he states this was never filled. He has a presumptive diagonosis of COPD based off of CXR done, but has not had formal PFTs and does not see a mitten sewer. He denies needed home oxygen. MedHx: as above Meds: Lisinopril, advil SurgHx:Bilateral carpel tunnel release, lipoma removal SocialHx: Lives at home with mother, Retired restauarant/harvest worker fruit, current smoker, up to a PPD, since 20 years old. 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 No recreational drugs. Used to enjoy [employer] ED Course: -Patient presents to the ED with BP 157/91, HR 103, T 97.7, RR 24, O2 93% on 3L NC. -Lab markers demonstrated hemoconcentration with Hgb 17, no white count, no left shift or bandemia. CXR without infiltrate. -treated with nebulizer therapy, IV dexamethasone 10mg, and Magnesium. -patient continued to be hypoxic requiring 4 L nasal cannula, Continued to have some wheezing, additional breathing treatment was given. -Hospitalist team A consulted, patient admitted for acute asthma/COPD exacerbation. Exam Vital Signs Temp Pulse Resp BP Pulse Ox O2 Del Method O2 Flow Rate 96.8 F 95 20 136/80 H 92 L Aerosol Mask 4 08/07/25 11:18 08/07/25 11:19 08/07/25 11:19 08/07/25 11:18 08/07/25 11:19 08/07/25 11:18 08/07/25 11:19 Narrative Exam General: Middle aged patient, sitting at the edge of the bed, mildly distressed. HEENT: Mucosa moist. Pupils are equal and reactive to light bilaterally, fair dentition. Cardiovascular: Normal S1 and S2. Tachycardic and rhythm. No murmur appreciated Respiratory: Clear to auscultation bilaterally, wheezes not readily appreciated. Quieter airflow near the bases. Abdomen: Soft, nontender, not distended, Skin: Dry, no rashes or bruising Musculoskeletal: No gross injuries. Able to move all 4 extremities. Non edematous lower extremities. Neuro: Alert and oriented x3. No focal neuro deficits. Psych: Normal affect and mood Results: Labs 08/08/25 05:32 08/08/25 05:32 Labs: Short CBC 08/07/25 Range/Units 04:55 WBC 8.4 (3.8-10.6) Thou/mm3 Hgb 17.1 H (13.5-16.0) g/dL Hct 50.4 (41.0-53.0) % Plt Count 217 (140-440) Thou/mm3 BMP 08/07/25 04:55 Sodium 137 Potassium 4.2 Chloride 105 Carbon Dioxide 23.5 BUN 10 Creatinine 0.9 Glucose 109 H Calcium 9.9 Liver Function 08/07/25 Range/Units 04:55 Total Bilirubin 0.6 (0.3-1.2) mg/dL AST 29 (0-34) U/L ALT 52 H (10-49) U/L Alkaline Phosphatase 69 (46-116) U/L Albumin 4.9 H (3.4-4.8) gm/dL Urine 08/07/25 Range/Units 05:43 Urine Color Lt-Yellow (Lt Yel-Yel) Urine Clarity Clear (Clear/Hazy) Urine pH 5.5 (5.0-7.0) Ur Specific [place] 1.020 (1.001-1.035) Urine Protein Negative (Neg - Trace) Urine Glucose (UA) Negative (Negative) Quality Measures Quality Measures none Medications Home Medications and Allergies Home Medications ?Medication ?Instructions ?Recorded ?Confirmed ?Type lisinopril 20 mg tablet 20 mg PO QDAY 12/17/1708/07 History albuterol sulfate 90 mcg/actuation 2 puff inhalation Q 4H PRN 04/13/21 08/07/25 History aerosol inhaler (Ventolin HFA) shortness of breath or wheezing budesonide-formoterol HFA 160 2 puff inhalation BID 08/07/25 History mcg-4.5 mcg/actuation aerosol inhaler (Symbicort) Allergies Allergy/AdvReac Type Severity Reaction Status Date / Time No Known Allergies Allergy Verified 08/07/25 04:12 Visit Medications Acetaminophen (Acetaminophen 325 Mg Tablet) 650 mg PO Q6H PRN PRN Reason: Fever >101.5 Stop: 09/06/25 12:37 Albuterol (Albuterol Rt 2.5 Mg/0.5 Ml Nebu) 2.5 mg INH Q6HRRT MONIKA Stop: 09/06/25 12:59 Albuterol (Albuterol Rt 2.5 Mg/0.5 Ml Nebu) 2.5 mg INH Q2HR PRN PRN Reason: SHORTNESS OF BREATH OR WHEEZE Stop: 09/06/25 12:37 Budesonide (Budesonide Rt 0.25 Mg/2 Ml Nebu) 0.25 mg INH BIDRT [facility] Stop: 09/06/25 18:59 Enoxaparin Sodium (Enoxaparin Sod Inj 40 Mg/0.4 Ml Syringe) 40 mg SC QDAY [facility] Stop: 08/22/25 08:59 Ipratropium [place] (Ipratropium Rt 0.5 Mg/ 2.5 Ml Nebu) 0.5 mg INH Q6HRRT [facility] Stop: 09/06/25 12:59 Ipratropium [place] (Ipratropium Rt 0.5 Mg/ 2.5 Ml Nebu) 0.5 mg INH Q2HR PRN PRN Reason: SHORTNESS OF BREATH OR WHEEZE Stop: 09/06/25 12:37 Methylprednisolone Sodium Succinate (Methylprednisolone Sod Succ 40 Mg/Ml Vial) 20 mg IVP BID [facility] Stop: 08/15/25 08:59 Nicotine (Nicotine Patch 7 Mg/24 Hr Patch.Td24) 7 mg TOP X1 ONE Stop: 08/07/25 12:49 Ondansetron HCl (Ondansetron Inj 2 Mg/Ml Inj 2 Ml) 4 mg IVP Q6H PRN; Protocol PRN Reason: NAUSEA OR VOMITING Stop: 09/06/25 12:37 Sodium Chloride (Sodium Chloride Rt Rochelle 0.9% 3 Ml Nebu) 3 ml INH PRN PRN PRN Reason: SOLN Stop: 09/06/25 12:37 Discontinued Medications Albuterol (Albuterol Rt 2.5 Mg/0.5 Ml Nebu) 10 mg INH X1 ONE Stop: 08/07/25 04:31 Last Admin: 08/07/25 04:56 Dose: Not Given Albuterol (Albuterol Rt 2.5 Mg/0.5 Ml Nebu) 10 mg INH X1 ONE Stop: 08/07/25 07:46 Last Admin: 08/07/25 08:49 Dose: 10 mg Albuterol (Albuterol Rt 2.5 Mg/0.5 Ml Nebu) 10 mg INH X1 ONE Stop: 08/07/25 10:24 Last Admin: 08/07/25 11:17 Dose: 10 mg Dexamethasone Sodium Phosphate (Dexamethasone Sod Phos Inj 10 Mg/Ml Vial) 10 mg IVP X1 ONE Stop: 08/07/25 08:16 Last Admin: 08/07/25 08:22 Dose: 10 mg Magnesium Sulfate (Magnesium Sulfate Ivpb) 2 gm in 50 mls @ 25 mls/hr IV X1 ONE Stop: 08/07/25 06:34 Last Infusion: 08/07/25 07:50 Dose: Infused Sodium Chloride (Ns) 500 mls @ 500 mls/hr IV .Q1H ONE Stop: 08/07/25 05:34 Last Infusion: 08/07/25 07:00 Dose: Infused Lisinopril (Lisinopril 20 Mg Tablet) 20 mg PO X1 ONE Stop: 08/07/25 10:43 Last Admin: 08/07/25 10:50 Dose: 20 mg Sodium Chloride (Sodium Chloride Rt Rochelle 0.9% 3 Ml Nebu) 3 ml INH PRN PRN PRN Reason: SOLN Stop: 09/06/25 04:29 Sodium Chloride (Sodium Chloride Rt Rochelle 0.9% 3 Ml Nebu) 3 ml INH PRN PRN PRN Reason: SOLN Stop: 09/06/25 07:44 Assessment & Plan Plan 64 yom with a h/o asthma, presumptive COPD, HTN, HLD, and current tobacco use who presents with acute shortness of breath that started this morning, admitted for asthma vs COPD exacerbation. #Acute Hypoxemic Respiratory Failure 2/2 #Asthma exacerbation vs #presumptive acute COPD exacerbation #Tobacco Use Disorder Presented with wheezing, hypoxic with o2 sat at 92%. COPD was presumptively diagnosed by PCP based on prior CXR and chronic cough. No official PFTs done. Was supposed to have filled a new formeterol-budesonide but it sounds like this was never filled. CXR without evidence of consolidation or infiltration. Hgb of 17 supports the diagnosis of COPD. -Admit med tele -albuterol/ipratropium q6 with q2 prn. -methylprednisolone 20 mg BID -Nicotine patch if requested -Cont pulse ox #HTN -Continue lisinopril #HLD -Denies taking home meds. Health Maintenance: DVT prophylaxis: lovenox Diet: regular Sharma: No Lines: PIV CODE STATUS: Full code Disposition:Likely DC tomorrow if respiratory status stablizes. Patient's plan and care discussed with my attending, Dr. Dunn and my senior Dr. Stark. Lexx Ortiz DO PGY-1 ([facility] Resident) Attending Provider Attestation/Addendum Sirena, Ratna Dunn DO, attest that I was physically present for the vázquez portions of the service and evaluated the patient with the resident and I reviewed and discussed the case with the resident and agree with the resident's findings and plans of care as documented above Patient is a 64-year-old male with past medical history of asthma, hypertension, hyperlipidemia and chronic tobacco use who presented to the ED for shortness of breath. Patient states that he was recently treated for an acute asthma exacerbation a few weeks ago. He was prescribed inhalers and nebulizers. However, patient has not received a nebulizer machine, just the liquid solution. He reports that he feels congested and cannot cough up any productive sputum. He has had worsening shortness of breath since waking up this morning and dyspnea on exertion. Patient has been a chronic tobacco user and states that he quit yesterday. His last cigarette was last night at 9 PM. Patient is currently on 4 L nasal cannula. Chest x-ray was done in the ED showing no active disease. He is noted to have scattered wheezing on exam with diminished breath sounds. Patient is noted to have flattened diaphragms and likely has COPD given chronic tobacco use. Will admit patient to med/telemetry for further workup and medical management of acute COPD exacerbation. Patient has received breathing treatments in the ED if reports some improvement, but continues to complain of chest congestion. Will continue with breathing treatments every 4 hours with steroids. No pneumonia noted on x-ray, will hold off on antibiotics at this time. Patient received magnesium in the ED as well as steroids and fluids. Will wean patient off O2 and anticipate discharge within the next 24 to 48 hours.
[2025-08-07] MEDS: NICOTINE PATCH 7 MG/24 HR PATCH.TD24 TOP (16:31)
[2025-08-07] MEDS: ALBUTEROL/IPRATROPIUM (Duoneb) RT SOL 3 ML NEBU INH ×2 (19:49→23:10)
[2025-08-07] MEDS: BUDESONIDE RT 0.25 MG/2 ML NEBU INH (19:50)
[2025-08-08] VITALS (9 sets, daily range): BP systolic 103–128; BP diastolic 63–72; PULSE 65–82; RESP 18–96; TEMP 36.1–36.4; O2SAT 95–99
--- NOTE | 2025-08-08 01:25 | PC.NURSE ---
Pt complaint of heartburn, MD Saeed made aware, new order made to give Protonix tab x1. When I went to the room and administer the meds, pts said the heartburn went away and refused to take the meds at this time, he said that if it will comes back he will call me. Meds return to the [facility].
[2025-08-08 06:19] LABS: Basophils # (Auto) 0.0 Thou/mm3 (0.0-0.2); Basophils % (Auto) 0 % (0-2.5); Eosinophils # (Auto) 0.0 Thou/mm3 (0.0-0.5); Eosinophils % (Auto) 0 % (0-10); Hematocrit 45.1 % (41.0-53.0); Hemoglobin 14.9 g/dL (13.5-16.0); Immature Granulocytes Auto 0.06 Thou/mm3 (0.00-0.00); Lymphocytes # (Auto) 1.4 Thou/mm3 (1.0-4.8); Lymphocytes % (Auto) 9 % (10-50); Mean Corpuscular HGB Conc 33.0 g/dl (31.0-37.0); Mean Corpuscular Hemoglobin 30.3 pg (25.0-35.0); Mean Corpuscular Volume 92 fL (80-100); Monocytes # (Auto) 0.5 Thou/mm3 (0.0-0.8); Monocytes % (Auto) 3 % (0-12); Neutrophils # (Auto) 12.9 Thou/mm3 (1.8-7.7); Neutrophils % (Auto) 87 % (37-80); Nucleated Red Blood Cell # 0.00 Thou/mm3 (0.00-0.00); Nucleated Red Blood Cell % 0 /100 WBC (0); Platelet Count 195 Thou/mm3 (140-440); RDW Standard Deviation 47.2 fL (35.1-43.9); Red Blood Count 4.92 Miln/mm3 (4.50-5.90); White Blood Count 14.8 Thou/mm3 (3.8-10.6)
[2025-08-08 06:36] LABS: Alanine Aminotransferase 38 U/L (10-49); Albumin, Serum 4.4 gm/dL (3.4-4.8); Albumin/Globulin Ratio 1.8 (1.2-2.2); Alkaline Phosphatase 58 U/L (46-116); Anion Gap 8 (7-16); Aspartate Amino Transferase 19 U/L (0-34); BUN/Creatinine Ratio 16 Ratio (12-20); Bilirubin,Total 1.0 mg/dL (0.3-1.2); Blood Urea Nitrogen 14 mg/dL (9-23); Calcium 9.9 mg/dL (8.3-10.6); Calcium (Corrected) 9.9 mg/dL (8.5-10.1); Carbon Dioxide 23.5 mMol/L (20.0-31.0); Chloride 104 mMol/L (98-107); Creatinine (Component) 0.9 mg/dL (0.6-1.3); Estimated Creatinine Clearance 83.2 mL/min (>60); Globulin 2.4 gm/dL (2.3-3.5); Glucose 127 mg/dL (74-106); Osmolality,Calculated 272 (275-295); Phosphorous 3.4 mg/dL (2.4-5.1); Potassium 5.1 mMol/L (3.4-5.1); Sodium 135 mMol/L (136-145); Total Protein 6.8 gm/dL (5.7-8.2); eGFR > 60 See Note
[2025-08-08] MEDS: BUDESONIDE RT 0.25 MG/2 ML NEBU INH (07:55)
[2025-08-08] MEDS: ALBUTEROL/IPRATROPIUM (Duoneb) RT SOL 3 ML NEBU INH ×2 (07:55→11:26)
[2025-08-08] MEDS: ENOXAPARIN SOD INJ 40 MG/0.4 ML SYRINGE SC (08:20)
--- NOTE | 2025-08-08 08:36 | PD.RESPRO ---
Documentation for date of: 08/08/25 Subjective Subjective Interval history: Patient examined at bedside, NAOE. Exam Vital Signs Temp Pulse Resp BP Pulse Ox O2 Del Method O2 Flow Rate 97.5 F 76 21 H 121/67 97 Nasal Cannula 4 08/08/25 07:50 08/08/25 08:18 08/08/25 07:50 08/08/25 08:18 08/08/25 07:50 08/08/25 07:50 08/08/25 07:50 Objective Labs 08/08/25 05:32 08/08/25 05:32 Labs: Laboratory Results - last 24 hr 08/08/25 05:32 WBC 14.8 H D RBC 4.92 Hgb 14.9 D Hct 45.1 MCV 92 MCH 30.3 MCHC 33.0 RDW Std Deviation 47.2 H Plt Count 195 Neut % (Auto) 87 H Lymph % (Auto) 9 L [place] % (Auto) 3 Eos % (Auto) 0 Baso % (Auto) 0 Neut # (Auto) 12.9 H Lymph # (Auto) 1.4 [place] # (Auto) 0.5 Eos # (Auto) 0.0 Baso # (Auto) 0.0 Immature Gran # (Auto) 0.06 H Absolute Nucleated RBC 0.00 Immature Gran % 0 Nucleated RBC % 0 Sodium 135 L Potassium 5.1 D Chloride 104 Carbon Dioxide 23.5 Anion Gap 8 BUN 14 Creatinine 0.9 Estim Creat Clear Calc 83.2 eGFR > 60 BUN/Creatinine Ratio 16 Glucose 127 H Calculated Osmolality 272 L Calcium 9.9 Corrected Calcium 9.9 Phosphorus 3.4 Total Bilirubin 1.0 AST 19 ALT 38 Alkaline Phosphatase 58 Total Protein 6.8 Albumin 4.4 D Globulin 2.4 Albumin/Globulin Ratio 1.8 Quality Measures Quality Measures none Assessment & Plan Assessment Current Active Medications: Generic Name Dose Route Start Last Admin Trade Name Freq PRN Reason Stop Dose Admin Acetaminophen 650 mg 08/07/25 12:38 Acetaminophen 325 Mg Tablet PO 09/06/25 12:37 Q6H PRN Fever >101.5 Albuterol/Ipratropium 3 ml 08/07/25 13:36 Albuterol/Ipratropium (Duoneb) Rt Rochelle 3 Ml Nebu INH 09/06/25 13:59 Q2HR PRN SHORTNESS OF BREATH OR WHEEZE Albuterol/Ipratropium 3 ml 08/07/25 19:00 08/08/25 07:55 Albuterol/Ipratropium (Duoneb) Rt Rochelle 3 Ml Nebu INH 09/06/25 18:59 3 ml Q4HRRT MONIKA Administration Budesonide 0.25 mg 08/07/25 19:00 08/08/25 07:55 Budesonide Rt 0.25 Mg/2 Ml Nebu INH 09/06/25 18:59 0.25 mg BIDRT MONIKA Administration Enoxaparin Sodium 40 mg 08/08/25 09:00 08/08/25 08:20 Enoxaparin Sod Inj 40 Mg/0.4 Ml Syringe SC 08/22/25 08:59 40 mg QDAY MONIKA Administration Lisinopril 20 mg 08/08/25 09:00 08/08/25 08:18 Lisinopril 20 Mg Tablet PO 09/07/25 08:59 20 mg QDAY MONIKA Administration Methylprednisolone Sodium Succinate 20 mg 08/08/25 09:00 08/08/25 08:19 Methylprednisolone Sod Succ 40 Mg/Ml Vial IVP 08/15/25 08:59 20 mg BID MONIKA Administration Ondansetron HCl 4 mg 08/07/25 12:38 Ondansetron Inj 2 Mg/Ml Inj 2 Ml IVP 09/06/25 12:37 Q6H PRN NAUSEA OR VOMITING Protocol Sodium Chloride 3 ml 08/07/25 12:38 Sodium Chloride Rt Rochelle 0.9% 3 Ml Nebu INH 09/06/25 12:37 PRN PRN SOLN
--- NOTE | 2025-08-08 09:25 | PC.SS ---
Addendum entered by DEMI Marcelo 08/08/25 11:05: [facility] staff informed [employer] that the office will process and deliver the nebulizer tomorrow. Addendum entered by DEMI Marcelo 08/08/25 09:28: [employer] was notified by Dr. Dunn that patient will need nebulizer. [employer] submitted DME referral via [employer]. Original Note: Patient is a 64 year old male presenting to the hospital for asthma/COPD exacerbation. [employer] met with patient at bedside, role and reason for visit was explained. Patient stated that he lives at address on face sheet and lives with his mother Susan Soto. Patient stated that in case he is unable to make medical decisions on his own he would like his mother Susan to make them, her contact number is [phone]. Patient stated that if mother is not answering, a secondary contact is his sister Steffanie Soto [phone]. Patient is retired, does not use medical equipment at home, pharmacy of choice is [facility], PCP is Lisbeth Sandoval at [facility]. His last appointment was in July 2025, his next appointment is August 31 2025. Patient stated that is needing nebulizer. SS will submit referral for DME. Once medically clear patient will return home. Decision Maker: [phone] PCP: Dr. Sandoval D/c: home
--- NOTE | 2025-08-08 09:58 | PC.NURSE ---
Ambulated patient down the halls without O2. Tolerated well O2 sats 97% room air. Patient did complain of being lightheaded. Pt is anxious. Pt back in room with mom. Pt on room air tolerating well. 02 sats 98% sitting on bed. Will continue to monitor.
--- NOTE | 2025-08-08 13:04 | ESDS_ITS ---
<Statement entered by Ratna Dunn DO - 08/08/25 14:58> I, Ratna Dunn DO, attest that I was physically present for the vázquez portions of the service and evaluated the patient with the resident and I reviewed and discussed the case with the resident and agree with the resident's findings and plans of care as documented above Planned Discharge Date 08/08/25 DS: Providers Provider Date of admission: 08/07/25 12:38 Primary care physician: Physician No Primary/Family Admitting Provider: Ratna Dunn DO Attending Provider on Admission: Ratna Dunn DO Attending Provider on DC: Ratna Dunn DO Discharging Provider: Ratna Dunn DO DS: Diagnosis Problem List Completed Was Problem List Reviewed/Reconciled?: Yes Hospital Course Hospital Course Hospital course: 64 yom with a h/o asthma, presumptive COPD, HTN, HLD, and current tobacco use who presents to the ED on 08/07 with acute shortness of breath that started this morning, admitted for asthma vs COPD exacerbation. Patient was afebrile, no elevated WBC, and CXR notable for flattened diaphragm but negative for active pneumonia. Patient given IV steriods and multiple rounds of duonebs. In the ED, he seemed to have some improvment with the duonebs and IV steroids, but was unable to wean off the 4L o2 via nasal cannula. Duonebs were continued, he was given a second dose of IV steriods the following day. Wheezing on auscultation resolved, O2 was titrated down to discontinuation, and patient was able to tolerate a amublatory oximetry trial without desaturation. On 08/08, he was medically cleared and discharged in stable condition. Recommendations: Resume previous medications. Complete your steroid course as prescribed for COPD exacerbation. Refrain from smoking. Watch for worsening symptoms such as SOB, wheezing, sputum changes. Follow up with PCP in 1-2 weeks. Discharge Diagnoses: #Acute Hypoxemic Respiratory Failure 2/2 #Asthma exacerbation vs #presumptive acute COPD exacerbation #Tobacco Use Disorder #HTN #HLD Patient's plan and care discussed with my attending, Dr. Shaun Ortiz DO PGY-1 ([facility] Resident) Time Spent with Patient Time attestation: Total time spent providing and/or coordinating discharge services: Time spent: Greater than 30 minutes Exam Vital Signs Temp Pulse Resp BP Pulse Ox O2 Del Method O2 Flow Rate 97.2 F 72 23 H 115/63 95 Room Air 3 08/08/25 11:52 08/08/25 11:52 08/08/25 11:52 08/08/25 11:52 08/08/25 11:52 08/08/25 11:52 08/08/25 07:55 Narrative Exam General: Middle aged patient, sitting at the edge of the bed, tearful. HEENT: Mucosa moist. Pupils are equal and reactive to light bilaterally, fair dentition. Cardiovascular: Normal S1 and S2. Tachycardic and rhythm. No murmur appreciated Respiratory: Clear to auscultation bilaterally, wheezes or crackles not readily appreciated. Abdomen: Soft, nontender, not distended, Skin: Dry, no rashes or bruising Musculoskeletal: No gross injuries. Able to move all 4 extremities. Non edematous lower extremities. Neuro: Alert and oriented x3. No focal neuro deficits. Psych: Normal affect, somewhat sad mood. Discharge Plan Plan Patient Disposition: HOME (Self Care) Prescriptions/Referrals Prescriptions/Med Rec: New methylprednisolone [Medrol (Fredy)] 4 mg tablets,dose pack 4 mg PO QDAY Qty: 21 0RF Continued budesonide-formoterol [Symbicort] 160-4.5 mcg/actuation HFA aerosol inhaler 2 puff inhalation BID albuterol sulfate [Ventolin HFA] 90 mcg/actuation HFA aerosol inhaler 2 puff inhalation Q4H PRN (Reason: shortness of breath or wheezing) lisinopril 20 mg Tablet 20 mg PO QDAY Referrals: No Primary/Family,Physician [Primary Care Provider] Patient/Caregiver Discharge Instructions Other Discharge Activity Instructions:: Resume previous medications. Complete your steroid course as prescribed for COPD exacerbation. Refrain from smoking. Watch for worsening symptoms such as SOB, wheezing, sputum changes. Follow up with PCP in 1-2 weeks. Education Materials: COPD: Chronic Coughing, Asthma and COPD Print Language: Azeri Stand Alone Forms: Bailee Award Info., Patient Portal Info Letter Discharge Order Discharge Orders: Discharge (Routine); Ordered 08/08/25 Ordered By: Caroline Frias Quality Discharge Quality Measures VTE prophylaxis
== END 2025-08-08 14:17 | disposition home or self-care (01) | DRG 140 ==
LOC: SERX 08:47 → S3NX 08-08 13:15 → SERHOLD 08-09 05:55
PROVIDERS: Emergency Medicine; Admitting Provider Internal Medicine; Emergency Provider Emergency Medicine; Visit Provider Internal Medicine
DX: J44.1 Chronic obstructive pulmonary disease with (acute) exacerbation (principal); E78.5 Hyperlipidemia, unspecified; J96.01 Acute respiratory failure with hypoxia; J45.901 Unspecified asthma with (acute) exacerbation; I10 Essential (primary) hypertension; F17.210 Nicotine dependence, cigarettes, uncomplicated
CPT/HCPCS: 36415; 71045; 80053; 81001; 84100; 85025; 87811; 93225; 94640; 94644; 94762; 96365; 96366; 96375; 99284; A9270; J1100; J1650; J2919; J3475; J7999